=== PATIENT | female | born 1955 | race African-American/Black ===

== ENCOUNTER 2020-01-05 19:07 | Inpatient (IN) | payer MEDICARE, MEDICAID ==
[~2020-01-05] VITALS: Ht 170.2 cm; Wt 115.2 kg
[~2020-01-05 19:07] MED LIST: BENA20TA10 PO; GABA-531 PO; LORA10TA7 PO; METF-416 PO; NPH SQ
[2020-01-05] MEDS ORDERED: SODIUM CHLORIDE 0.9% 1,000 ML IV ONE (20:15)
[2020-01-05 20:29] LABS: BASOPHILS % 0.6 % (0.0-2.0); EOSINOPHILS % 0.9 % (0.0-5.0); HEMATOCRIT. 39.6 % (36.0-48.0); HEMOGLOBIN. 13.3 g/dL (12.0-16.0); LYMPHOCYTES % 12.2 % (20.0-50.0); MEAN CORPUSCULAR HEMOGLOBIN 28.9 pg (28.0-32.0); MEAN PLATELET VOLUME 10.2 fl (7.4-10.4); MONOCYTES % 6.8 % (2.0-8.0); NEUTROPHILS % 79.5 % (40.0-76.0); PLATELET 326 x1000/uL (130-400)
[2020-01-05 20:36] LABS: CHLORIDE 96 mEq/L (98-107)
[2020-01-05 20:40] LABS: BG BASE EXCESS -7.7 mmol/L (-2.0-2.0); BG CARBOXYHEMOGLOBIN 0.7 % (0.5-1.5); BG DEOXYHEMOGLOBIN 3.5 % (0.0-5.0); BG FRACTION INSPIRED OXYGEN 21; BG HCO3 ACT 17.2 mmol/L (22.0-26.0); BG METHEMOGLOBIN 0.4 % (0.0-1.5); BG OXYGEN SATURATION 96.5 % (92.0-98.5); BG OXYHEMOGLOBIN 95.4 % (94.0-97.0); BG PCO2 33.4 mmHg (35.0-45.0); BG PH 7.329 (7.350-7.450); BG PO2 85.4 mmHg (75.0-100.0); BG SAMPLE SITE RIGHT RADIAL; BG TOTAL HEMOGLOBIN 13.8 g/dL (12.0-18.0); BG VENT MODE ROOM AIR
[2020-01-05 20:47] LABS: BETA HYDROXYBUTYRATE 5.4 mMol/L (0.0-0.3)
[2020-01-05] MEDS ORDERED: INSULIN REGULAR (HUMULIN R) 300UNITS/3ML IV ONE (21:00)
[2020-01-05] MEDS ORDERED: KETOROLAC 30MG/ML VIAL IV ONE (22:30)
[2020-01-06 00:02] LABS: CLARITY URINE CLEAR (CLEAR); COLOR URINE YELLOW (YELLOW); KETONES URINE 3+ (NEGATIVE); LEUKOCYTE ESTERASE URINE NEGATIVE (NEGATIVE); NITRITE URINE NEGATIVE (NEGATIVE); OCCULT BLOOD URINE 1+ (NEGATIVE); PROTEIN URINE 2+ (NEGATIVE); UROBILINOGEN URINE 0.2 E.U./dL (0.2-1.0)
[2020-01-06 06:00] VITALS: BP 121/97
[2020-01-06 06:37] VITALS: BP 121/97
[2020-01-06] MEDS ORDERED: INS7030 SUBCUT ×2 (06:41→06:42)
[2020-01-06] MEDS ORDERED: ONDANSETRON HCL 4MG/2ML INJ IV PRN (07:00)
[2020-01-06] MEDS ORDERED: DEXTROSE 50% WATER 50ML SYRINGE IV PRN (07:00)
[2020-01-06] MEDS: BLOOD SUGAR DIAGNOSTIC STRIP TEST SCH ×4 (07:04→20:16)
[2020-01-06] MEDS ORDERED: INSULIN LISPRO 100 UNITS/ML SUBCUT SCH (07:50)
[2020-01-06] MEDS ORDERED: METFORMIN HCL 500MG TABLET PO SCH (07:50)
[2020-01-06 08:14] VITALS: BP 155/65
[2020-01-06] MEDS: GABAPENTIN 300MG CAPSULE PO SCH (08:19)
[2020-01-06] MEDS: BENAZEPRIL 10MG TABLET PO SCH (08:21)
[2020-01-06] MEDS: ENOXAPARIN 30MG/0.3ML SYR SUBCUT SCH ×2 (08:26→20:29)
[2020-01-06] MEDS ORDERED: MEDICATION NOT ON FORMULARY EA (Benazepril Hcl 20 MG) PO SCH (09:00)
[2020-01-06 09:49] LABS: HEMATOCRIT 36.2 % (36.0-48.0); HEMOGLOBIN 12.1 g/dL (12.0-16.0); MEAN CORPUSCULAR HEMOGLOBIN 28.8 pg (28.0-32.0); MEAN CORPUSCULAR VOLUME 85.8 fL (81.0-99.0); PLATELET 307 x1000/uL (130-400); RED BLOOD CELL COUNT 4.22 mill/uL (4.2-5.4)
[2020-01-06] MEDS: INSULIN GLARGINE UD 100 UNITS/ML SYR SUBCUT SCH ×2 (10:44→21:17)
[2020-01-06 11:58] VITALS: BP 144/62
[2020-01-06] MEDS: INSULIN LISPRO 100 UNITS/ML SUBCUT SCH ×3 (13:22→20:25)
[2020-01-06 15:47] VITALS: BP 157/71
[2020-01-06] MEDS: OMEPRAZOLE 20MG CAPSULE EXTENDED RELEASE PO SCH (19:13)
[2020-01-06 20:00] VITALS: BP 144/64
[2020-01-06] MEDS: ATORVASTATIN CALCIUM 40MG TABLET PO SCH (20:29)
[2020-01-06] MEDS: AMLODIPINE 5MG TABLET PO SCH (20:32)
[2020-01-07] VITALS (7 sets, daily range): BP systolic 117–142; BP diastolic 45–76
[2020-01-07] MEDS: OMEPRAZOLE 20MG CAPSULE EXTENDED RELEASE PO SCH (06:39)
[2020-01-07] MEDS: BLOOD SUGAR DIAGNOSTIC STRIP TEST SCH ×4 (06:39→20:56)
[2020-01-07] MEDS ORDERED: GLIPIZIDE XL 2.5MG TABLET PO SCH (07:50)
[2020-01-07] MEDS: GABAPENTIN 300MG CAPSULE PO SCH (08:56)
[2020-01-07] MEDS: METFORMIN HCL 500MG TABLET PO SCH ×2 (08:56→17:28)
[2020-01-07] MEDS: AMLODIPINE 5MG TABLET PO SCH ×2 (08:57→20:46)
[2020-01-07] MEDS: ENOXAPARIN 30MG/0.3ML SYR SUBCUT SCH ×2 (08:57→20:45)
[2020-01-07] MEDS: BENAZEPRIL 10MG TABLET PO SCH (08:58)
[2020-01-07] MEDS: INSULIN LISPRO 100 UNITS/ML SUBCUT SCH ×5 (09:01→20:55)
[2020-01-07] MEDS: INSULIN GLARGINE UD 100 UNITS/ML SYR SUBCUT SCH ×3 (09:02→21:03)
[2020-01-07] MEDS ORDERED: INSULIN GLARGINE UD 100 UNITS/ML SYR SUBCUT NR (12:00)
[2020-01-07] MEDS: HYDROCODONE/ACETAMINOPHEN 5/325MG TABLET PO PRN ×2 (12:18→20:46)
[2020-01-07] MEDS: ATORVASTATIN CALCIUM 40MG TABLET PO SCH (20:46)
[2020-01-07] MEDS: MAGNESIUM/ALUMINUM HYDROXIDE/SIMETHICONE 30ML UDC PO PRN (21:37)
[2020-01-08 04:00] VITALS: BP 122/54
[2020-01-08] MEDS: BLOOD SUGAR DIAGNOSTIC STRIP TEST SCH ×3 (06:42→16:37)
[2020-01-08] MEDS: INSULIN LISPRO 100 UNITS/ML SUBCUT SCH ×5 (06:42→16:46)
[2020-01-08] MEDS: OMEPRAZOLE 20MG CAPSULE EXTENDED RELEASE PO SCH (06:45)
[2020-01-08 07:56] VITALS: BP 154/88
[2020-01-08] MEDS: METFORMIN HCL 500MG TABLET PO SCH ×2 (08:20→16:46)
[2020-01-08] MEDS: GABAPENTIN 300MG CAPSULE PO SCH (08:20)
[2020-01-08] MEDS: BENAZEPRIL 10MG TABLET PO SCH (08:20)
[2020-01-08] MEDS: ENOXAPARIN 30MG/0.3ML SYR SUBCUT SCH (08:21)
[2020-01-08] MEDS: AMLODIPINE 5MG TABLET PO SCH (08:21)
[2020-01-08] MEDS: INSULIN GLARGINE UD 100 UNITS/ML SYR SUBCUT SCH (10:27)
[2020-01-08 12:16] VITALS: BP 134/58
[2020-01-08] MEDS: MAGNESIUM/ALUMINUM HYDROXIDE/SIMETHICONE 30ML UDC PO PRN (15:33)
[2020-01-08 16:04] VITALS: BP 156/66
[2020-01-08 16:07] VITALS: BP 156/66
[2020-01-08] MEDS ORDERED: LANTUSUD SUBCUT (16:41)
[2020-01-08] MEDS ORDERED: INSLIS SUBCUT (16:41)
[2020-01-08] MEDS ORDERED: AMLO5TAB88 PO (16:41)
[2020-01-08] MEDS ORDERED: METF500T PO (16:41)
[2020-01-08] MEDS ORDERED: LIP40 PO (16:41)
[2020-01-08] MEDS ORDERED: INSULIN LISPRO 100 UNITS/ML SUBCUT SCH (17:20)
== END 2020-01-08 18:05 | disposition home or self-care (01) | DRG 637 ==
LOC: ER 19:07 → 6WST 23:26 → ENRESERV 01-06 04:44
PROVIDERS: ADMIT Internal Medicine; ATTEND Internal Medicine
DX: E11.65 Type 2 diabetes mellitus with hyperglycemia (principal); N17.0 Acute kidney failure with tubular necrosis; E87.1 Hypo-osmolality and hyponatremia; M54.30 Sciatica, unspecified side; E87.8 Other disorders of electrolyte and fluid balance, not elsewhere classified; M48.02 Spinal stenosis, cervical region; M48.061 Spinal stenosis, lumbar region without neurogenic claudication; E66.9 Obesity, unspecified; G89.29 Other chronic pain; M54.5 Low back pain; M47.9 Spondylosis, unspecified; M41.9 Scoliosis, unspecified; E78.5 Hyperlipidemia, unspecified; Z68.39 Body mass index [BMI] 39.0-39.9, adult; Z79.84 Long term (current) use of oral hypoglycemic drugs; Z79.899 Other long term (current) drug therapy; Z90.49 Acquired absence of other specified parts of digestive tract
CPT/HCPCS: 36415; 36600; 71045; 72141; 72148; 80048; 80053; 80061; 81003; 82010; 82375; 82805; 82962; 83036; 84484; 85025; 85027; 93005; 99285; J1650; J1815; J1885; J7030